=== PATIENT | female | born 1990 | race Caucasian/White ===

== ENCOUNTER 2020-05-09 14:48 | Emergency (ER) | payer OTHER ==
[~2020-05-09] VITALS: Ht 160 cm; Wt 95.3 kg
[2020-05-09 19:09] VITALS: BP 110/64
== END 2020-05-09 19:10 | disposition home or self-care (01) ==
LOC: ER 14:48
DX: O9A.213 Injury, poisoning and certain other consequences of external causes complicating pregnancy, third trimester (principal); S30.0XXA Contusion of lower back and pelvis, initial encounter; Z3A.32 32 weeks gestation of pregnancy; W18.2XXA Fall in (into) shower or empty bathtub, initial encounter; Y93.89 Activity, other specified; Y92.89 Other specified places as the place of occurrence of the external cause; Y99.9 Unspecified external cause status

== ENCOUNTER 2020-07-01 03:53 | Emergency (ER) | payer OTHER ==
[~2020-07-01] VITALS: Ht 172.7 cm; Wt 90.7 kg
[2020-07-01 03:54] VITALS: BP 145/90
== END 2020-07-01 04:10 | disposition short-term general hospital (02) ==
LOC: ER 03:53
DX: O62.9 Abnormality of forces of labor, unspecified (principal); Z3A.39 39 weeks gestation of pregnancy